=== PATIENT | male | born 1965 | race Caucasian/White ===

== ENCOUNTER 2018-10-29 08:14 | Outpatient (RCR) | payer OTHER ==
[~2018-10-29 08:14] MED LIST: IBUPROFEN PAIN200 MG PO; NO HOME MEDICATIONS
== END 2019-01-27 ==
LOC: WSPT
DX: B20 Human immunodeficiency virus [HIV] disease (principal); I25.110 Atherosclerotic heart disease of native coronary artery with unstable angina pectoris; R53.83 Other fatigue